=== PATIENT | female | born 1975 | race Caucasian/White ===

== ENCOUNTER 2017-10-30 09:24 | Day surgery (SDC) | payer OTHER, SELFPAY ==
[2017-10-21 14:36] VITALS: BMI 32.4
[2017-10-30] VITALS (12 sets, daily range): BP systolic 91–116; BP diastolic 55–83; PULSE 62–84; RESP 10–21; TEMP 36.2–36.7; O2SAT 92–99; BMI 32.4
--- NOTE | 2017-10-30 | PATH_ITS ---
[facility] Accession Number: [id number] . 01 Material submitted: . BILATERAL OVARIES AND FALLOPIAN TUBES . 02 Diagnosis: Bilateral Ovaris and Fallopian Tubes: Large cystic corpus luteum, one ovary. Large follicular cyst, one ovary. Focal ovarian stromal hyperplasia, one ovary. Fallopian tubes unremarkable. MRV/11/02/2017 . 02 Electronically signed: . Sean Chaudhary MD, Pathologist NPI- [id number] . 01 Gross description: . Received in formalin, labeled bilateral ovaries + fallopian tubes, are fragmented ovaries (7.5 x 5.5 x 1.3 cm in aggregate) and two fimbriated fallopian tubes (tube #1: length-3.0 cm, diameter-0.5 cm; tube #2: length-2.5 cm, diameter-0.5 cm). The ovarian tissue has maria-pink smooth shiny flat serosa and rivas-white solid firm parenchyma with corpus albicans and corpus luteum identified. The fallopian tubes have rivas-pink smooth shiny serosa and rivas unremarkable lumens. Section code: (A1, A2) ovarian parenchyma, hardware supplies sales representative serial sections; (A3) fallopian tube #1, hardware supplies sales representative serial sections; (A4) fimbria #1, bivalved, entirely submitted; (A5) fallopian tube #2, hardware supplies sales representative serial sections; (A6) fimbria #2, bivalved, entirely submitted. ([id number]) /MRV . Pathologist provided ICD-10: N83.299 . 02 CPT . 119309 Performed at: [address], [place], [place] [id number] MD Salvatore Jordan MD Phone: [phone] Performed at: 02 [facility] [place] [address] [place] [id number] MD Olman Blue MD Phone: [phone]
[2017-10-30] MEDS: LACTATED RINGERS 1,000 ML 100 ML IV (10:08)
[2017-10-30] MEDS: APREPITANT 40 MG CAPSULE PO (11:24)
--- NOTE | 2017-10-30 11:45 | SUR.OPER ---
Lithotomy on padded OR bed, head on pillow, right arm secured on padded arm boards at <90 degrees abduction, left arm padded and tucked at side. Legs secured in padded yellow fins stirrups.
[2017-10-30] MEDS: BUPIVACAINE 0.5% W/ EPI (PF) VIAL 30 ML INJ (11:57)
--- NOTE | 2017-10-30 12:32 | PM.GYNOP.1 ---
Operative Date/Time/Diagnoses Date of procedure: 10/30/17 Time of procedure: 12:32 Pre-op diagnosis: Post subtotal hysterectomy cervical bleeding Recurrent ovarian cysts Post-op diagnosis: same Procedure: Procedures Operation Date: 10/30/17 10:45 Actual Procedures Side Surgeon elie Montes Laparoscopy, Fulgeration of Cervix, Bilat S&O Florin Cowart MD Indications: Persistent cervical bleeding Recurrent ovarian cyst Surgeon: Florin Cowart Anesthesia Type: General Operative Notes Findings: Cervix with large numbers of blood vessels Normal tubes and ovaries Closure Type: primary Specimen(s): left tube & ovary and right tube & ovary Estimated blood loss (mL): 50 Blood products transfused: none Procedure in detail: The patient was placed supine upon the operating table and anesthetized. She was then placed in the dorsal lithotomy position and examined under anesthesia. The patient had a small nulliparous cervix and no masses. The patient was then draped and prepared in the usual fashion. Approximately 10 cc of 0.5% Marcaine and one 200,000 epinephrine were injected into the umbilicus. Incision was made. The Veress needle was placed at approximately 4.5 L of carbon dioxide gas were insufflated to a final resting pressure of 15 cm water. The pelvic contents were visualized after the large trocar was set in place. Patient had vasculature over the end of the cervix but no adhesions. Tubes and ovaries appeared to be normal. 2 5 mm incisions were made periumbilically and lateral quadrants after injection of 0.5% Marcaine wanted her 1000 epinephrine. 5 mm ports were introduced. The right tube was grasped and elevated to expose the infundibulopelvic ligament. Positive headache was then placed to the right hand port and the ovary was amputated by serial full durations and cut. Similar procedures were performed on the left-hand side without difficulty. And deep into the endocervix to get the residual adenomyosis it appeared to be there. At the end of procedure no bleeding points were seen. All carbon dioxide gas was allowed to exit the abdomen and laparoscopic trocars were then removed. The umbilical incision was closed with a deep 0 Vicryl suture. It was then closed with horizontal mattress three 0 Vicryl suture. The 5 mm ports were closed with a horizontal mattress three 0 Vicryl suture. The wounds were then Steri-Stripped. No bleeding points were seen. The patient was taken to the recovery room in satisfactory condition Complications: none Post-operative Condition: stable Disposition: PACU Plan for aftercare: Dr. Martinez office two weeks
[2017-10-30] MEDS: fentaNYL 100 MCG/2 ML INJ 50 MCG IV ×2 (12:52→13:03)
[2017-10-30] MEDS: diphenhydrAMINE 50 MG/ML VIAL 12.5 MG IV (13:59)
== END 2017-10-30 14:30 | disposition home or self-care (01) ==
PROVIDERS: Family Provider Nurse Practitioner Family; PCP Nurse Practitioner Family
PROC: (CPT 49320; principal; 2017-10-30 10:45)
DX: N83.10 Corpus luteum cyst of ovary, unspecified side (principal); N83.00 Follicular cyst of ovary, unspecified side; N83.8 Other noninflammatory disorders of ovary, fallopian tube and broad ligament
CPT/HCPCS: 58661; J0330; J1100; J1200; J2250; J2405; J2704; J3010; J8501